=== PATIENT | female | born 1950 | race Caucasian/White ===

== ENCOUNTER → 2018-09-08 18:41 | Emergency (ER) | payer MEDICARE ==
[~2018-09-08 18:41] MED LIST: DOXYcycline CAP(*) 100 MG PO ONE
--- NOTE | 2018-09-08 19:02 | ED ---
Bite Injury/Animal - HPI Summary HPI Summary: Patient complains of tick at base of left side neck likely 1 week. Patient states she noticed irritation at the site 1 week ago, but did not notice take until today. States she has been feeling some generalized fatigue, but denies any other symptoms pain or injury. Medical history is anemia. - History of Current Complaint Chief Complaint: EDAnimalBite Stated Complaint: I HAVE A TICK ON MY NECK X1 WEEK PER PT Time Seen by Provider: 09/08/18 18:50 Hx Obtained From: Patient Onset of Injury: Happened days ago Severity Initially: Mild Severity Currently: Mild Pain Intensity: 3 Pain Scale Used: 0-10 Numeric Associated Signs And Symptoms: Positive: Erythema - Allergies/Home Medications Allergies/Adverse Reactions: Allergies Allergy/AdvReac Type Severity Reaction Status Date / Time Penicillins Allergy Swelling Verified 09/08/18 19:03 Of Face,Lips,& Throat PMH/Surg Hx/FS Hx/Imm Hx Cardiovascular History: Denies: Hx Pacemaker/ICD History: Denies: Hx Dialysis Musculoskeletal History: Denies: Hx Osteoporosis Sensory History: Denies: Hx Legally Blind Opthamlomology History: Denies: Hx Eye Prosthesis EENT History: Denies: Hx Deafness Neurological History: Denies: Hx Dementia Psychiatric History: Denies: Hx Autism - Cancer History Hx Chemotherapy: No Hx Radiation Therapy: No - Surgical History Surgery Procedure, Year, and Place: LEFT KNEE Infectious Disease History: No Infectious Disease History: Denies: Traveled Outside the [place] in Last 30 Days - Family History Known Family History: Positive: Non-Contributory - Social History Alcohol Use: Occasionally Hx Substance Use: No Hx Tobacco Use: No Review of Systems Constitutional: Negative Eyes: Negative ENT: Negative Cardiovascular: Negative Respiratory: Negative Gastrointestinal: Negative Genitourinary: Negative Musculoskeletal: Negative Skin: Other Neurological: Negative Psychological: Normal All Other Systems Reviewed And Are Negative: Yes Physical Exam - Summary Physical Exam Summary: Engorged tick at base of left side lateral neck, with associated area of erythema about the size of a quarter. No bull's-eye rash. No other rash noted on other areas of body. Tick removed intact and alive. Triage Information Reviewed: Yes Vital Signs On Initial Exam: Initial Vitals Temp Pulse Resp BP Pulse Ox 98.3 F 92 18 175/87 96 09/08/18 18:44 09/08/18 18:44 09/08/18 18:44 09/08/18 18:44 09/08/18 18:44 Vital Signs Reviewed: Yes Appearance: Positive: Well-Appearing Skin: Positive: Warm, Erythema @ Head/Face: Positive: Normal Head/Face Inspection Eyes: Positive: Normal Neck: Positive: Supple Respiratory/Lung Sounds: Positive: Clear to Auscultation Cardiovascular: Positive: Normal Abdomen Description: Positive: Nontender Musculoskeletal: Positive: Normal Neurological: Positive: Normal Psychiatric: Positive: Normal AVPU Assessment: Alert - Reading Coma Scale Best Eye Response: 4 - Spontaneous Best Motor Response: 6 - Obeys Commands Best Verbal Response: 5 - Oriented Coma Scale Total: 15 Diagnostics - Vital Signs Vital Signs Temp Pulse Resp BP Pulse Ox 09/08/18 18:44 98.3 F 92 18 175/87 96 - Laboratory Lab Statement: Any lab studies that have been ordered have been reviewed, and results considered in the medical decision making process. Bite Injury Course/Dx - Course Course Of Treatment: Patient complains of tick at base of left side neck likely 1 week. Patient states she noticed irritation at the site 1 week ago, but did not notice take until today. States she has been feeling some generalized fatigue, but denies any other symptoms pain or injury. Medical history is anemia. Physical exam:Engorged tick at base of left side lateral neck, with associated area of erythema about the size of a quarter. No bull's-eye rash. No other rash noted on other areas of body. Tick removed intact and alive. Vital signs within normal limits. Doxycycline 200 mg by mouth 1 administered here in the ED. - Diagnoses Provider Diagnosis: Tick bite Discharge - Sign-Out/Discharge Documenting (check all that apply): Patient Departure Patient Received Moderate/Deep Sedation with Procedure: No - Discharge Plan Condition: Stable Disposition: HOME Patient Education Materials: Lyme Disease (ED), Tick Bite (ED) Referrals: Belen Beck [Primary Care Provider] - Additional Instructions: Follow-up with primary care. Return to the ED for any new or worsening symptoms. - Billing Disposition and Condition Condition: STABLE Disposition: Home
[2018-09-08 19:26] VITALS: BP 164/82
== END | disposition home or self-care (01) ==
LOC: ED 18:41
DX: S10.96XA Insect bite of unspecified part of neck, initial encounter (principal); W57.XXXA Bitten or stung by nonvenomous insect and other nonvenomous arthropods, initial encounter; Y92.9 Unspecified place or not applicable; D64.9 Anemia, unspecified; Z88.0 Allergy status to penicillin
CPT/HCPCS: 99282; A9270-GY